=== PATIENT | male | born 1975 | race Caucasian/White ===

== ENCOUNTER → 2017-04-15 | Outpatient (CLI) | payer OTHER ==
[~2017-04-15] MED LIST: AZIT500T PO
--- NOTE | 2017-04-15 10:37 | DIAGNOSTIC IMAGING REPORT ---
CERVICAL WITHOUT CONTRAST HISTORY: Pain. Neuropathy. NECK PAIN TECHNIQUE: Multiplanar multisequence MRI of the cervical spine was performed without the use of contrast. COMPARISON STUDY: None. FINDINGS: Study is restricted to the sagittal images. The patient was unable to tolerate transaxial imaging due to persistent discomfort. Degenerative changes C1-C2 complex with moderate associated reactive granulation tissue. No significant impact upon the cervical cord. Sagittal images suggest posterior bulging discs at C4-C5 and C5-C6. Impact upon the anterior cervical cord by sagittal criteria appears to be minimal. No additional] abnormalities based on sagittal images. IMPRESSION: 1. Severely limited exam as the patient complained of extensive discomfort. 2. Examination is restricted to sagittal imaging. 3. Central bulging disc C4-C5 and C5-C6 with minimal impact anterior cervical cord 4. No major disc herniation. 5. Significant Degenerative changes C1-C2 complex with considerable reactive granulation tissue. no impact upon the cervical cord at that site. The above report was generated using voice recognition software. It may contain grammatical, syntax or spelling errors. Electronically signed by: Lalo Angeles M.D. 04/15/2017 10:35 AM Dictated Date/Time: 04/15/2017 10:30 AM
== END | disposition home or self-care (01) ==
LOC: C.MRI 09:30
PROVIDERS: ATTEND Internal Medicine
DX: M50.221 Other cervical disc displacement at C4-C5 level (principal); M50.222 Other cervical disc displacement at C5-C6 level; M50.31 Other cervical disc degeneration, high cervical region